=== PATIENT | male | born 1965 | race Caucasian/White ===

== ENCOUNTER 2023-06-04 08:14 | Day surgery (SDC) | payer OTHER ==
[2023-05-26 09:21] VITALS: BMI 38.3
[2023-05-26 09:50] LABS: Hematocrit 48.2 % (38.8-50.0); Hemoglobin 16.2 g/dL (13.5-17.5); Mean Corpuscular HGB CONC 33.6 g/dL (32.0-36.0); Mean Corpuscular Volume 86.2 fl (81.2-95.1); Mean Platelet Volume 11.7 fl (7.4-10.4); Platelet Count 253 10x3/uL (150-450); RBC Distribution Width 13.6 % (11.5-14.5); Red Blood Cell (RBC) Count 5.59 10x6/uL (4.32-5.72); White Blood Cell (WBC) Count 7.9 10x3/uL (3.5-10.5)
[2023-05-26 10:13] LABS: INR-International Normal Ratio 1.1; Prothrombin Time 11.9 sec (9.5-12.1)
[2023-05-26 10:42] LABS: Anion Gap 15 mmol/L (10-20); BUN (Urea Nitrogen) 14 mg/dL (8.4-25.7); Calc. Creatinine Clearance 99 mL/min (70-130); Calcium 9.6 mg/dL (7.8-10.44); Carbon Dioxide 21 mmol/L (22-29); Chloride 108 mmol/L (98-107); Estimated GFR 57; Glucose 88 mg/dL (70-105); Potassium 4.5 mmol/L (3.5-5.1); Sodium 139 mmol/L (136-145)
[2023-06-04] MEDS ORDERED: Heparin 10,000 UNITS/ 10 ML VIAL ONE (09:46)
[2023-06-04] MEDS ORDERED: Heparin 25,000 units/D5W 500 ML ONE (09:47)
[2023-06-04] MEDS ORDERED: Phenylephrine 10 MG/ML VIAL ONE (11:07)
[2023-06-04] MEDS ORDERED: fentaNYL PF 100 MCG/2 ML SYRINGE ONE (11:07)
[2023-06-04] MEDS ORDERED: Rocuronium Bromide 10 MG/ML (10ML VIAL) ONE (11:26)
[2023-06-04] MEDS ORDERED: PROPOFOL 200 MG/20 ML VIAL ONE (11:26)
[2023-06-04] MEDS ORDERED: Protamine Sulfate 50 MG/5 ML VIAL ONE (13:50)
[2023-06-04] MEDS ORDERED: SUGAMMADEX SODIUM 200 MG/2 ML VIAL ONE (14:04)
== END 2023-06-04 15:50 | disposition home or self-care (01) ==
LOC: SDC 08:14
PROVIDERS: ATTEND Internal Medicine Cardiovascular Disease
PROC: 02583ZZ Destruction of Conduction Mechanism, Percutaneous Approach (ICD-10-PCS; principal; 2023-06-04)
PROC: 02K83ZZ Map Conduction Mechanism, Percutaneous Approach (ICD-10-PCS; principal; 2023-06-04)
DX: I48.19 Other persistent atrial fibrillation (principal)
CPT/HCPCS: 80048; 85027; 85347; 85610; 93005; 93312; C1732; C1759; C1760; C1894; C2630; J1644; J2370; J2704; J2720

== ENCOUNTER → 2023-07-16 | Day surgery (SDC) | payer OTHER ==
[2023-07-15 12:12] VITALS: BMI 38.2
[~2023-07-16] MED LIST: Labetalol HCl 100 MG/20 ML VIAL ONE; PROPOFOL 200 MG/20 ML VIAL ONE
== END ==
LOC: SDC 06:32
PROVIDERS: ATTEND Internal Medicine Cardiovascular Disease
PROC: 5A2204Z Restoration of Cardiac Rhythm, Single (ICD-10-PCS; principal; 2023-07-16)
DX: I48.19 Other persistent atrial fibrillation (principal); I25.10 Atherosclerotic heart disease of native coronary artery without angina pectoris; I10 Essential (primary) hypertension; E78.5 Hyperlipidemia, unspecified; K21.9 Gastro-esophageal reflux disease without esophagitis; F17.290 Nicotine dependence, other tobacco product, uncomplicated; Z79.01 Long term (current) use of anticoagulants; Z79.899 Other long term (current) drug therapy
CPT/HCPCS: 92960; 93005; 93010; J2704